=== PATIENT | female | born 1990 | race African-American/Black ===

== ENCOUNTER 2016-07-23 08:18 | Observation (INO) | payer MEDICAID | END 2016-07-23 09:01 | disposition home or self-care (01) | DRG 566 | LOC: LDRP 08:18 | PROVIDERS: ADMIT Specialist; ATTEND Specialist | DX: O36.8130 Decreased fetal movements, third trimester, not applicable or unspecified (principal); O21.2 Late vomiting of pregnancy; Z3A.00 Weeks of gestation of pregnancy not specified | CPT/HCPCS: G0378 ==